=== PATIENT | female | born 1965 | race Caucasian/White ===

== ENCOUNTER 2016-05-31 05:33 | Emergency (ER) | payer OTHER ==
[~2016-05-31 05:33] MED LIST: ALBUTEROL17 GM INH; BACTRIM DS TABL1 TAB PO; BENZONATATE PO; CHOLESTEROL MED; CHOLESTEROL PILL; GUAIFENESIN400 M1 PO; HCTZ PO; LISINOPRIL-HCTZ1 T19; LISINOPRIL10 MG PO; LORTAB; MONODOX100 MG PO; PERCOCET5/325 PO; PREDNISONE PO; PREVACID 24HR15 MG PO; ROBITUSSIN A-C S5 ML PO; VICODIN 5/1 TAB 5/50 PO; VOLTAREN50 MG PO; XYLOCAINE TOP; ZOVIRAX400 MG PO
== END 2016-05-31 05:40 | disposition home or self-care (01) ==
LOC: SED 05:33
DX: R21 Rash and other nonspecific skin eruption (principal); I10 Essential (primary) hypertension; F31.9 Bipolar disorder, unspecified; F17.200 Nicotine dependence, unspecified, uncomplicated; Z79.899 Other long term (current) drug therapy
CPT/HCPCS: 99282